=== PATIENT | female | born 1985 | race African-American/Black ===

== ENCOUNTER 2017-06-27 02:52 | Inpatient (IN) | payer MEDICAID, OTHER ==
[~2017-06-27] VITALS: Ht 160 cm; Wt 87.1 kg
[~2017-06-27 02:52] MED LIST: IBUP-2030 PO
[2017-06-27] MEDS ORDERED: LACTATED RINGERS 1,000 ML IV SCH (03:08)
[2017-06-27] MEDS ORDERED: NALOXONE HCL 0.4 MG/ML 1ML VIAL IM PRN (03:15)
[2017-06-27] MEDS ORDERED: LIDOCAINE HCL 1% 20ML VIAL (Pyxis) INJ INFIL SCH (03:15)
[2017-06-27] MEDS ORDERED: BUTORPHANOL TARTRATE 2 MG/ML VIAL IV PRN (03:15)
[2017-06-27] MEDS ORDERED: METHYLERGONOVINE MALEATE 0.2 MG/ML IM PRN (03:15)
[2017-06-27] MEDS ORDERED: MISOPROSTOL 100MCG TABLET VG SCH (03:15)
[2017-06-27] MEDS ORDERED: CARBOPROST TROMETHAMINE 250 MCG/ML AMPUL IM PRN (03:15)
[2017-06-27] MEDS ORDERED: PENICILLIN G POTASSIUM 5 MMU in DEXT 5% WATER 100 ML IV SCH (03:15)
[2017-06-27] MEDS: DEXT 5%/LR + PITOCIN 20UNITS/L 1,000 ML IV SCH ×3 (03:38→11:53)
[2017-06-27 03:48] LABS: HEMOGLOBIN. 8.5 g/dL (12.0-16.0); MEAN CORPUSCULAR VOLUME 66.1 fL (81.0-99.0); MEAN PLATELET VOLUME 8.5 fl (7.4-10.4); PLATELET 315 x1000/uL (130-400); RED BLOOD CELL COUNT 4.24 mill/uL (4.2-5.4); RED CELL DISTRIBUTION WIDTH 21.4 % (11.6-14.6)
[2017-06-27 03:51] LABS: CLARITY URINE TURBID (CLEAR); COLOR URINE YELLOW (YELLOW); GLUCOSE URINE TRACE (NEGATIVE); KETONES URINE NEGATIVE (NEGATIVE); LEUKOCYTE ESTERASE URINE TRACE (NEGATIVE); NITRITE URINE NEGATIVE (NEGATIVE); OCCULT BLOOD URINE TRACE (NEGATIVE); PROTEIN URINE 1+ (NEGATIVE); SPECIFIC GRAVITY URINE 1.019 (1.005-1.030)
[2017-06-27 03:56] LABS: PARTIAL THROMBOPLASTIN TIME 26.4 sec (23.4-31.0); PROTHROMBIN TIME 10.7 sec (9.4-11.6)
[2017-06-27 04:29] LABS: *AMPHETAMINES SCREEN URINE NEGATIVE (NEGATIVE); *BARBITURATES SCREEN URINE NEGATIVE (NEGATIVE); *BENZODIAZEPINES SCREEN URINE NEGATIVE (NEGATIVE); *COCAINE SCREEN URINE NEGATIVE (NEGATIVE); CANNABINOID URINE SCREEN NEGATIVE (NEGATIVE); METHADONE URINE SCREEN NEGATIVE (NEGATIVE); OPIATES URINE SCREEN NEGATIVE (NEGATIVE); PHENCYCLIDINE URINE SCREEN NEGATIVE (NEGATIVE)
[2017-06-27 04:50] LABS: NUCLEATED RED BLOOD CELLS 3 /100 WBC; PLATELET ESTIMATE NORMAL
[2017-06-27] MEDS ORDERED: LEVO112T2 PO (05:02)
[2017-06-27] MEDS ORDERED: PNV1TABL76 MT (05:02)
[2017-06-27] MEDS ORDERED: OXYTOCIN 10 UNITS/ML 1ML ONE (06:21)
[2017-06-27 06:55] LABS: HEPATITIS B SURFACE ANTIGEN NEGATIVE
[2017-06-27] MEDS ORDERED: BENZOCAINE/LANOLIN/ALOE VERA SPRAY TOP PRN (07:00)
[2017-06-27] MEDS ORDERED: ACETAMINOPHEN 500MG TABLET PO PRN (07:00)
[2017-06-27 07:59] LABS: RUBELLA IGG > 500.0 IU/mL (4.99-10)
[2017-06-27] MEDS ORDERED: PENICILLIN G POTASSIUM 2.5 MMU in DEXTROSE 5% WATER 50 ML IV SCH (08:00)
[2017-06-27] MEDS: OXYCODONE HCL/ACETAMINOPHEN 5/325MG TABLET PO PRN ×2 (08:34→18:30)
[2017-06-27 09:55] VITALS: BP 90/54
[2017-06-27 10:25] VITALS: BP 91/52
[2017-06-27] MEDS ORDERED: MISOPROSTOL 200MCG TABLET ONE (11:15)
[2017-06-27] MEDS: METHYLERGONOVINE MALEATE 0.2MG TABLET PO SCH ×2 (11:55→18:28)
[2017-06-27 15:20] VITALS: BP 115/65
[2017-06-27 20:00] VITALS: BP 110/66
[2017-06-27] MEDS ORDERED: DOCUSATE SODIUM 100MG CAPSULE PO SCH (21:00)
[2017-06-27 23:55] VITALS: BP 101/53
[2017-06-28 06:32] LABS: HEMATOCRIT. 25.4 % (36.0-48.0); HEMOGLOBIN. 7.7 g/dL (12.0-16.0); MEAN CORPUSCULAR HEMOGLOBIN 20.1 pg (28.0-32.0); MEAN CORPUSCULAR VOLUME 66.2 fL (81.0-99.0); MEAN PLATELET VOLUME 8.1 fl (7.4-10.4); PLATELET 331 x1000/uL (130-400); RED BLOOD CELL COUNT 3.83 mill/uL (4.2-5.4); RED CELL DISTRIBUTION WIDTH 21.3 % (11.6-14.6)
[2017-06-28 08:00] VITALS: BP 114/67
[2017-06-28] MEDS ORDERED: LEVOTHYROXINE SODIUM 100MCG TABLET PO SCH (09:00)
[2017-06-28] MEDS ORDERED: PRENATAL VIT/FE FUMARATE/FA TABLET PO SCH (09:00)
[2017-06-28] MEDS: FERROUS SULFATE 325MG TABLET PO SCH ×2 (09:52→11:49)
[2017-06-28 11:49] VITALS: BP 101/53
[2017-06-28] MEDS: OXYCODONE HCL/ACETAMINOPHEN 5/325MG TABLET PO PRN (11:49)
[2017-06-28 13:22] LABS: PLATELET ESTIMATE NORMAL
[2017-06-28] MEDS ORDERED: INFLUENZA VIRUS VACCINE 0.5ML SYR IM ONE (18:00)
== END 2017-06-28 19:16 | disposition home or self-care (01) | DRG 560 ==
LOC: L&D 02:52 → OBSVTOIN 02:52 → 7EST PP/OB 09:50
PROVIDERS: ADMIT Obstetrics & Gynecology Obstetrics; ATTEND Obstetrics & Gynecology Obstetrics
PROC: 10E0XZZ Delivery of Products of Conception, External Approach (ICD-10-PCS; principal; 2017-06-27 08:16)
DX: O99.284 Endocrine, nutritional and metabolic diseases complicating childbirth (principal); O34.13 Maternal care for benign tumor of corpus uteri, third trimester; E03.9 Hypothyroidism, unspecified; O66.0 Obstructed labor due to shoulder dystocia; Z3A.00 Weeks of gestation of pregnancy not specified; Z37.0 Single live birth
CPT/HCPCS: 36415; 80305; 81001; 85025; 85610; 85730; 86592; 86703; 86762; 86850; 86900; 86920; 87340; 90686; G0378; J0595; J2540; J2590; J3490; J7060; J7120; A4315

== ENCOUNTER 2018-08-23 18:35 | Inpatient (IN) | payer OTHER ==
[~2018-08-23] VITALS: Ht 160 cm; Wt 86.2 kg
[2018-08-23] MEDS ORDERED: FERR325T23 MT (18:52)
[2018-08-23] MEDS ORDERED: PREN1TAB78 PO (18:52)
[2018-08-23] MEDS ORDERED: [UNRECOGNIZED DRUG - CODE] MT (18:53)
[2018-08-23] MEDS ORDERED: DEXT 5%/LR + PITOCIN 20UNITS/L 1,000 ML IV SCH (20:11)
[2018-08-23] MEDS ORDERED: LIDOCAINE HCL 1% 20ML VIAL (Pyxis) INJ INFIL NR (20:15)
[2018-08-23] MEDS ORDERED: METHYLERGONOVINE MALEATE 0.2 MG/ML IM PRN (20:15)
[2018-08-23 20:45] LABS: CLARITY URINE TURBID (CLEAR); COLOR URINE YELLOW (YELLOW); KETONES URINE TRACE (NEGATIVE); LEUKOCYTE ESTERASE URINE NEGATIVE (NEGATIVE); NITRITE URINE NEGATIVE (NEGATIVE); OCCULT BLOOD URINE 3+ (NEGATIVE); PH URINE 7.5 (4.5-8.0); PROTEIN URINE 1+ (NEGATIVE); SPECIFIC GRAVITY URINE 1.018 (1.005-1.030)
[2018-08-23 20:52] LABS: HEMATOCRIT. 31.3 % (36.0-48.0); HEMOGLOBIN. 9.6 g/dL (12.0-16.0); MEAN CORPUSCULAR HEMOGLOBIN 21.2 pg (28.0-32.0); MEAN CORPUSCULAR VOLUME 69.5 fL (81.0-99.0); MEAN PLATELET VOLUME 8.2 fl (7.4-10.4); PLATELET 286 x1000/uL (130-400); RED CELL DISTRIBUTION WIDTH 21.2 % (11.6-14.6)
[2018-08-23 20:57] LABS: PARTIAL THROMBOPLASTIN TIME 29.6 sec (23.4-31.0); PROTHROMBIN TIME 10.3 sec (9.1-11.1)
[2018-08-23 21:18] LABS: *AMPHETAMINES SCREEN URINE NEGATIVE (NEGATIVE); *BARBITURATES SCREEN URINE NEGATIVE (NEGATIVE); *BENZODIAZEPINES SCREEN URINE NEGATIVE (NEGATIVE); *COCAINE SCREEN URINE NEGATIVE (NEGATIVE)
[2018-08-23 21:19] LABS: CANNABINOID URINE SCREEN NEGATIVE (NEGATIVE); METHADONE URINE SCREEN NEGATIVE (NEGATIVE); OPIATES URINE SCREEN NEGATIVE (NEGATIVE); PHENCYCLIDINE URINE SCREEN NEGATIVE (NEGATIVE)
[2018-08-23] MEDS ORDERED: INFLUENZA VIRUS VACCINE(AFLURIA) 0.5ML SYR IM ONE (21:30)
[2018-08-23] MEDS ORDERED: PNEUMOCOCCAL 23-VAL P-SAC VAC 0.5 ML IM ONE (21:30)
[2018-08-23] MEDS: LACTATED RINGERS 1,000 ML IV SCH ×2 (21:33→22:25)
[2018-08-23 21:45] LABS: NUCLEATED RED BLOOD CELLS 2 /100 WBC; PLATELET ESTIMATE NORMAL
[2018-08-23] MEDS ORDERED: PENICILLIN G POTASSIUM 5 MMU in DEXT 5% WATER 100 ML IV SCH (22:00)
[2018-08-23 22:11] LABS: HEPATITIS B SURFACE ANTIGEN NEGATIVE
[2018-08-23] MEDS ORDERED: CITRIC ACID/SODIUM CITRATE SOLN 30ML UDC PO SCH (22:15)
[2018-08-23] MEDS ORDERED: EPHEDRINE SULFATE 50MG/ML VIAL ONE (22:27)
[2018-08-23] MEDS ORDERED: GLYCOPYRROLATE 0.2 MG/ML 2ML VIAL ONE (22:27)
[2018-08-23] MEDS ORDERED: SODIUM CHLORIDE 0.9% 10ML VIAL ONE ×2 (22:27→23:33)
[2018-08-23] MEDS ORDERED: OXYTOCIN 10 UNITS/ML 1ML ONE ×2 (22:28→23:47)
[2018-08-23] MEDS ORDERED: MORPHINE SULFATE/PF 1MG/ML 10ML AMP ONE (22:30)
[2018-08-23] MEDS ORDERED: CEFAZOLIN SODIUM 1000MG/VIAL ONE (23:33)
[2018-08-23] MEDS ORDERED: METOCLOPRAMIDE HCL 10MG/2ML VIAL ONE (23:41)
[2018-08-23] MEDS ORDERED: ONDANSETRON HCL 4MG/2ML INJ ONE (23:41)
[2018-08-24] VITALS (7 sets, daily range): BP systolic 98–107; BP diastolic 39–59
[2018-08-24] MEDS ORDERED: DEXT 5%/LR + PITOCIN 20UNITS/L 1,000 ML IV SCH (00:18)
[2018-08-24] MEDS ORDERED: PENICILLIN G POTASSIUM 2.5 MMU in DEXTROSE 5% WATER 50 ML IV SCH (02:00)
[2018-08-24] MEDS ORDERED: KETOROLAC 30MG/ML VIAL IV PRN (04:15)
[2018-08-24 07:32] LABS: HEMATOCRIT. 29.6 % (36.0-48.0); MEAN CORPUSCULAR HEMOGLOBIN 21.5 pg (28.0-32.0); MEAN CORPUSCULAR VOLUME 70.6 fL (81.0-99.0); MEAN PLATELET VOLUME 8.5 fl (7.4-10.4); PLATELET 229 x1000/uL (130-400); RED CELL DISTRIBUTION WIDTH 20.9 % (11.6-14.6)
[2018-08-24 12:51] LABS: PLATELET ESTIMATE NORMAL
[2018-08-24] MEDS: ACETAMINOPHEN WITH CODEINE 300/30MG TABLET PO PRN (17:53)
[2018-08-25] VITALS: BP 105/60
[2018-08-25] MEDS: ACETAMINOPHEN WITH CODEINE 300/30MG TABLET PO PRN ×3 (01:25→16:54)
[2018-08-25 06:26] VITALS: BP 95/53
[2018-08-25 08:30] VITALS: BP 111/64
[2018-08-25] MEDS ORDERED: DIPHENHYDRAMINE HCL/ZINC ACET 28 GM CREAM TOP PRN (09:30)
[2018-08-25] MEDS: BISACODYL 5MG TABLET PO NR ×2 (10:04→16:56)
[2018-08-25] MEDS ORDERED: BISACODYL 5MG TABLET PO ONE (10:22)
[2018-08-25] MEDS ORDERED: BISACODYL 10MG SUPP PR PRN (16:45)
[2018-08-25 17:07] VITALS: BP 106/64
[2018-08-25 20:00] VITALS: BP 102/58
[2018-08-25] MEDS: HYDROCODONE/ACETAMINOPHEN 5/325MG TABLET PO PRN (20:59)
[2018-08-26] VITALS: BP 103/56
[2018-08-26] MEDS: HYDROCODONE/ACETAMINOPHEN 5/325MG TABLET PO PRN (03:06)
[2018-08-26 04:00] VITALS: BP 108/57
[2018-08-26 08:00] VITALS: BP 102/56
[2018-08-26] MEDS: ACETAMINOPHEN WITH CODEINE 300/30MG TABLET PO PRN (14:16)
[2018-08-26 16:00] VITALS: BP 111/63
[2018-08-26 20:00] VITALS: BP 110/66
[2018-08-27] VITALS: BP 108/60
[2018-08-27 04:00] VITALS: BP 117/71
[2018-08-27] MEDS: HYDROCODONE/ACETAMINOPHEN 5/325MG TABLET PO PRN (05:06)
[2018-08-27 09:11] VITALS: BP 107/58
== END 2018-08-27 12:30 | disposition home or self-care (01) | DRG 788 ==
LOC: L&D 18:35 → INTOOBSV 18:35 → OBSVTOIN 18:35 → 8 EST LDRP 18:47 → 8EST 08-24 04:00
PROVIDERS: ADMIT Obstetrics & Gynecology Obstetrics; ATTEND Obstetrics & Gynecology Obstetrics
PROC: 10D00Z1 Extraction of Products of Conception, Low, Open Approach (ICD-10-PCS; principal; 2018-08-25)
DX: O77.0 Labor and delivery complicated by meconium in amniotic fluid (principal); O32.6XX0 Maternal care for compound presentation, not applicable or unspecified; O32.2XX0 Maternal care for transverse and oblique lie, not applicable or unspecified; Z3A.38 38 weeks gestation of pregnancy; Z37.0 Single live birth
CPT/HCPCS: 36415; 76805; 76818; 80305; 86592; 86703; 86762; 86850; 86900; 86920; 87340; 88307; 99281; G0378; J0690; J2274; J2405; J2540; J2590; J2765; J3490; J7060

== ENCOUNTER → 2020-05-30 | Outpatient (CLI) | payer BC ==
[2020-05-30 12:41] LABS: BASOPHILS % 0.9 % (0.0-2.0); EOSINOPHILS % 1.3 % (0.0-5.0); HEMATOCRIT. 38.9 % (36.0-48.0); HEMOGLOBIN. 12.9 g/dL (12.0-16.0); LYMPHOCYTES % 44.6 % (20.0-50.0); MEAN CORPUSCULAR HEMOGLOBIN 28.2 pg (28.0-32.0); MEAN CORPUSCULAR VOLUME 85.3 fL (81.0-99.0); MEAN PLATELET VOLUME 9.1 fl (7.4-10.4); NEUTROPHILS % 47.2 % (40.0-76.0); PLATELET 197 x1000/uL (130-400); RED BLOOD CELL COUNT 4.57 mill/uL (4.2-5.4)
[2020-05-30 12:50] LABS: CHLORIDE 109 mEq/L (98-107)
[2020-05-30 12:56] LABS: LDL CHOLESTEROL 138 mg/dL (5-100)
[2020-05-30 12:57] LABS: HDL CHOLESTEROL 49 mg/dL (40-59)
[2020-05-30 12:59] LABS: T4 FREE 0.97 ng/dL (0.76-1.46)
[2020-05-30 13:00] LABS: TOTAL IRON BINDING CAPACITY 389 ug/dL (250-450)
== END | disposition home or self-care (01) ==
LOC: LAB 11:54
PROVIDERS: ATTEND Internal Medicine
DX: D64.9 Anemia, unspecified (principal); E03.9 Hypothyroidism, unspecified; E78.5 Hyperlipidemia, unspecified
CPT/HCPCS: 36415; 80053; 80061; 83036; 83540; 83550; 84439; 84443; 85025

== ENCOUNTER → 2021-03-03 | Outpatient (CLI) | payer BC | END | disposition home or self-care (01) | LOC: US 10:17 | PROVIDERS: ATTEND Obstetrics & Gynecology Obstetrics | DX: O09.891 Supervision of other high risk pregnancies, first trimester (principal); D25.9 Leiomyoma of uterus, unspecified; Z3A.10 10 weeks gestation of pregnancy | CPT/HCPCS: 76801 ==

== ENCOUNTER → 2021-03-27 | Outpatient (CLI) | payer BC ==
[2021-03-27 14:21] LABS: HEPATITIS B SURFACE ANTIGEN NEGATIVE
[2021-03-27 14:51] LABS: HEPATITIS A AB IGM NEGATIVE (NEGATIVE)
[2021-03-30 09:09] LABS: HGB A2 2.4 % (1.8-3.2)
[2021-04-03 12:20] LABS: HIV SCREEN 4G Non Reactive (Non Reactive); RUBEOLA AB IGG > 300.00 AU/mL (Immune >16.4); VITAMIN D 25-OH 41.3 ng/mL (30.0-100.0)
== END | disposition home or self-care (01) ==
LOC: LAB 11:02
PROVIDERS: ATTEND Obstetrics & Gynecology Obstetrics
DX: O09.91 Supervision of high risk pregnancy, unspecified, first trimester (principal); Z13.1 Encounter for screening for diabetes mellitus; Z11.4 Encounter for screening for human immunodeficiency virus [HIV]; E55.9 Vitamin D deficiency, unspecified
CPT/HCPCS: 36415; 82306; 82947; 83021; 83036; 84439; 84443; 85660; 86592; 86705; 86709; 86762; 86765; 86803; 86900; 87340; 87389

== ENCOUNTER → 2021-06-08 | Outpatient (CLI) | payer BC ==
[2021-06-08 09:39] LABS: HEMATOCRIT 39.9 % (36.0-48.0); HEMOGLOBIN 13.6 g/dL (12.0-16.0)
== END | disposition home or self-care (01) ==
LOC: LAB 08:54
PROVIDERS: ATTEND Obstetrics & Gynecology Obstetrics
DX: Z13.1 Encounter for screening for diabetes mellitus (principal)
CPT/HCPCS: 36415; 82947; 82950; 84436; 84443; 84480; 85014; 85018

== ENCOUNTER 2021-07-27 11:20 | Observation (INO) | payer BC, MEDICAID ==
[~2021-07-27] VITALS: Ht 160 cm; Wt 89.8 kg
[2021-07-27] MEDS ORDERED: LACTATED RINGERS 1,000 ML IV SCH (13:15)
[2021-07-27 13:27] LABS: CLARITY URINE CLEAR (CLEAR); COLOR URINE YELLOW (YELLOW); KETONES URINE TRACE (NEGATIVE); LEUKOCYTE ESTERASE URINE NEGATIVE (NEGATIVE); NITRITE URINE NEGATIVE (NEGATIVE); OCCULT BLOOD URINE NEGATIVE (NEGATIVE); PROTEIN URINE TRACE (NEGATIVE); SPECIFIC GRAVITY URINE 1.029 (1.005-1.030)
[2021-07-27] MEDS ORDERED: TERBUTALINE SULFATE 1MG/ML VIAL SUBCUT NR (15:00)
[2021-07-27] MEDS ORDERED: PNV1TABL76 MT (15:50)
[2021-07-27] MEDS ORDERED: CEFAZOLIN 2,000 MG in DEXT 5% WATER 100 ML IV NR (16:00)
== END 2021-07-27 16:00 | disposition home or self-care (01) ==
LOC: 8 EST LDRP 11:20
PROVIDERS: ADMIT Obstetrics & Gynecology Obstetrics; ATTEND Obstetrics & Gynecology Obstetrics
DX: O99.891 Other specified diseases and conditions complicating pregnancy (principal); M54.59 Other low back pain; O26.893 Other specified pregnancy related conditions, third trimester; R10.30 Lower abdominal pain, unspecified; O62.9 Abnormality of forces of labor, unspecified; O09.523 Supervision of elderly multigravida, third trimester; Z3A.30 30 weeks gestation of pregnancy
CPT/HCPCS: 59025; 81003; 96361; 96365; G0378; J0690; J7060; 96360; 99281

== ENCOUNTER 2021-09-22 09:08 | Inpatient (IN) | payer BC, MEDICAID ==
[~2021-09-22] VITALS: Ht 160 cm; Wt 94.3 kg
[~2021-09-22 09:08] MED LIST changes: -IBUP-2030 PO; +PNV1TABL76 MT
[2021-09-22] MEDS ORDERED: LEVO100T PO (09:32)
[2021-09-22] MEDS ORDERED: METHYLERGONOVINE MALEATE 0.2 MG/ML IM PRN (09:45)
[2021-09-22] MEDS ORDERED: CARBOPROST TROMETHAMINE 250 MCG/ML AMPUL IM PRN (09:45)
[2021-09-22] MEDS ORDERED: NALOXONE HCL 0.4 MG/ML 1ML VIAL IM PRN (09:45)
[2021-09-22] MEDS ORDERED: MISOPROSTOL 100MCG TABLET VG PRN (09:45)
[2021-09-22] MEDS ORDERED: CITRIC ACID/SODIUM CITRATE SOLN 30ML UDC PO NR (09:45)
[2021-09-22] MEDS ORDERED: DEXT 5%/LR + PITOCIN 20UNITS/L 1,000 ML IV SCH (09:45)
[2021-09-22] MEDS ORDERED: TRANEXAMIC ACID 1,000 MG/10 ML IV PRN (09:45)
[2021-09-22] MEDS ORDERED: PHENYLEPHRINE HCL 10 MG/ML 1ML (IV VIAL) IV ONE (10:08)
[2021-09-22] MEDS ORDERED: OXYTOCIN 10 UNITS/ML 1ML ONE ×2 (10:08→13:06)
[2021-09-22] MEDS ORDERED: EPHEDRINE SULFATE 50MG/ML VIAL ONE (10:08)
[2021-09-22] MEDS ORDERED: CEFAZOLIN SODIUM 1000MG/VIAL ONE (10:08)
[2021-09-22] MEDS ORDERED: FENTANYL CITRATE/PF 50MCG/ML 2ML VIAL ONE (10:08)
[2021-09-22] MEDS ORDERED: MORPHINE SULFATE/PF 1MG/ML 10ML AMP ONE (10:08)
[2021-09-22] MEDS ORDERED: ONDANSETRON HCL 4MG/2ML INJ ONE (10:08)
[2021-09-22] MEDS ORDERED: DIPHENHYDRAMINE 50MG/ML VIAL ONE (10:08)
[2021-09-22] MEDS ORDERED: SODIUM CHLORIDE 0.9% 10ML VIAL ONE (10:32)
[2021-09-22] MEDS: LACTATED RINGERS 1,000 ML IV SCH ×2 (10:39→10:58)
[2021-09-22 11:05] LABS: BASOPHILS % 0.3 % (0.0-2.0); EOSINOPHILS % 0.3 % (0.0-5.0); HEMATOCRIT. 39.9 % (36.0-48.0); HEMOGLOBIN. 13.3 g/dL (12.0-16.0); LYMPHOCYTES % 17.6 % (20.0-50.0); MEAN CORPUSCULAR HEMOGLOBIN 28.9 pg (28.0-32.0); MEAN CORPUSCULAR VOLUME 86.9 fL (81.0-99.0); MEAN PLATELET VOLUME 9.2 fl (7.4-10.4); MONOCYTES % 7.7 % (2.0-8.0); NEUTROPHILS % 74.1 % (40.0-76.0); PLATELET 173 x1000/uL (130-400); RED BLOOD CELL COUNT 4.59 mill/uL (4.2-5.4); RED CELL DISTRIBUTION WIDTH 15.7 % (11.6-14.6)
[2021-09-22 11:08] LABS: CLARITY URINE CLEAR (CLEAR); COLOR URINE YELLOW (YELLOW); KETONES URINE NEGATIVE (NEGATIVE); LEUKOCYTE ESTERASE URINE NEGATIVE (NEGATIVE); NITRITE URINE NEGATIVE (NEGATIVE); OCCULT BLOOD URINE NEGATIVE (NEGATIVE); PH URINE 6.5 (4.5-8.0); PROTEIN URINE 1+ (NEGATIVE)
[2021-09-22 11:30] LABS: PARTIAL THROMBOPLASTIN TIME 29.7 sec (23.4-31.0); PROTHROMBIN TIME 10.3 sec (9.6-11.0)
[2021-09-22 11:38] LABS: *AMPHETAMINES SCREEN URINE NEGATIVE (NEGATIVE); *BARBITURATES SCREEN URINE NEGATIVE (NEGATIVE); *BENZODIAZEPINES SCREEN URINE NEGATIVE (NEGATIVE); *COCAINE SCREEN URINE NEGATIVE (NEGATIVE); CANNABINOID URINE SCREEN NEGATIVE (NEGATIVE)
[2021-09-22 11:39] LABS: METHADONE URINE SCREEN NEGATIVE (NEGATIVE); OPIATES URINE SCREEN NEGATIVE (NEGATIVE); PHENCYCLIDINE URINE SCREEN NEGATIVE (NEGATIVE)
[2021-09-22] MEDS ORDERED: KETOROLAC 60MG/2ML VIAL IM ONE (13:48)
[2021-09-22] MEDS ORDERED: DIPHENHYDRAMINE 50MG/ML VIAL IV PRN (14:15)
[2021-09-22] MEDS ORDERED: NALOXONE HCL 0.4 MG/ML 1ML VIAL IV PRN (14:15)
[2021-09-22] MEDS ORDERED: HEMORRHOIDAL SUPP PR PRN (14:15)
[2021-09-22 14:33] LABS: HEPATITIS B SURFACE ANTIGEN NEGATIVE
[2021-09-22] MEDS ORDERED: METHYLERGONOVINE MALEATE 0.2 MG/ML ONE (14:55)
[2021-09-22] MEDS ORDERED: KETOROLAC 30MG/ML VIAL IV SCH (15:00)
[2021-09-22 16:00] VITALS: BP 98/50
[2021-09-22 16:30] VITALS: BP 94/51
[2021-09-22] MEDS ORDERED: TETANUS, DIPHTHERIA, PERTUSSIS VAC/PF 0.5ML (>10YR OLD) IM ONE (17:00)
[2021-09-22] MEDS ORDERED: INFLUENZA VACCINE 05/PF 0.5 ML SYRINGE IM ONE (17:00)
[2021-09-22 20:00] VITALS: BP 113/67
[2021-09-22 23:55] VITALS: BP 101/56
[2021-09-23 04:00] VITALS: BP 105/56
[2021-09-23] MEDS ORDERED: KETOROLAC 30MG/ML VIAL IV SCH (05:45)
[2021-09-23] MEDS: LEVOTHYROXINE SODIUM 100MCG TABLET PO SCH (06:32)
[2021-09-23 07:17] LABS: BASOPHILS % 0.4 % (0.0-2.0); EOSINOPHILS % 0.2 % (0.0-5.0); HEMATOCRIT. 33.1 % (36.0-48.0); HEMOGLOBIN. 11.1 g/dL (12.0-16.0); MEAN CORPUSCULAR HEMOGLOBIN 29.4 pg (28.0-32.0); MEAN CORPUSCULAR VOLUME 87.5 fL (81.0-99.0); MEAN PLATELET VOLUME 9.1 fl (7.4-10.4); MONOCYTES % 8.5 % (2.0-8.0); NEUTROPHILS % 80.9 % (40.0-76.0); PLATELET 146 x1000/uL (130-400); RED BLOOD CELL COUNT 3.78 mill/uL (4.2-5.4); RED CELL DISTRIBUTION WIDTH 15.5 % (11.6-14.6)
[2021-09-23 07:30] VITALS: BP 92/54
[2021-09-23 12:22] VITALS: BP 103/58
[2021-09-23] MEDS ORDERED: ACETAMINOPHEN WITH CODEINE 300/30MG TABLET PO NR (14:45)
[2021-09-23] MEDS ORDERED: TETANUS, DIPHTHERIA, PERTUSSIS VAC/PF 0.5ML (>10YR OLD) IM ONE (15:00)
[2021-09-23] MEDS ORDERED: INFLUENZA VACCINE 05/PF 0.5 ML SYRINGE IM ONE (15:00)
[2021-09-23] MEDS ORDERED: NALOXONE HCL 0.4MG/ML VIAL IV PRN (15:15)
[2021-09-23 16:30] VITALS: BP 102/49
[2021-09-23 19:21] VITALS: BP 120/67
[2021-09-23] MEDS: HYDROCODONE/ACETAMINOPHEN 5/325MG TABLET PO PRN (19:21)
[2021-09-23] MEDS: DOCUSATE SODIUM 100MG CAPSULE PO SCH (21:01)
[2021-09-24] MEDS: HYDROCODONE/ACETAMINOPHEN 5/325MG TABLET PO PRN ×4 (03:07→19:07)
[2021-09-24 04:00] VITALS: BP 113/66
[2021-09-24] MEDS: LEVOTHYROXINE SODIUM 100MCG TABLET PO SCH (07:08)
[2021-09-24 08:08] VITALS: BP 117/67
[2021-09-24 15:26] VITALS: BP 107/64
[2021-09-24 20:00] VITALS: BP 108/68
[2021-09-24] MEDS: DOCUSATE SODIUM 100MG CAPSULE PO SCH (21:08)
[2021-09-25] MEDS: HYDROCODONE/ACETAMINOPHEN 5/325MG TABLET PO PRN ×3 (00:16→11:05)
[2021-09-25 04:00] VITALS: BP 116/68
[2021-09-25] MEDS: LEVOTHYROXINE SODIUM 100MCG TABLET PO SCH (06:53)
[2021-09-25 07:45] VITALS: BP 105/62
== END 2021-09-25 14:15 | disposition home or self-care (01) | DRG 788 ==
LOC: 8 EST LDRP 09:08 → 8EST 16:02
PROVIDERS: ADMIT Obstetrics & Gynecology Obstetrics; ATTEND Obstetrics & Gynecology Obstetrics
PROC: 10D00Z1 Extraction of Products of Conception, Low, Open Approach (ICD-10-PCS; principal; 2021-09-22)
DX: O34.211 Maternal care for low transverse scar from previous cesarean delivery (principal); D25.9 Leiomyoma of uterus, unspecified; O34.13 Maternal care for benign tumor of corpus uteri, third trimester; Z20.822 Contact with and (suspected) exposure to COVID-19; O71.89 Other specified obstetric trauma; K43.9 Ventral hernia without obstruction or gangrene; O99.62 Diseases of the digestive system complicating childbirth; Z37.0 Single live birth; Z3A.39 39 weeks gestation of pregnancy
CPT/HCPCS: 36415; 80305; 81003; 85025; 86592; 86703; 86762; 86850; 86900; 86920; 87340; 87426; 88307; 90686; 90715; J0690; J1200; J1885; J2210; J2274; J2370; J2405; J2590; J3010; J3490; J7120

== ENCOUNTER → 2021-11-14 | Outpatient (CLI) | payer BC, MEDICAID ==
[~2021-11-14] MED LIST changes: +LEVO100T PO
== END | disposition home or self-care (01) ==
LOC: US 09:02
PROVIDERS: ATTEND Obstetrics & Gynecology Obstetrics
DX: D26.1 Other benign neoplasm of corpus uteri (principal); N84.0 Polyp of corpus uteri; R93.89 Abnormal findings on diagnostic imaging of other specified body structures
CPT/HCPCS: 76830; 76856

== ENCOUNTER → 2021-12-27 | Day surgery (SDC) | payer BC, MEDICAID ==
[~2021-12-27] VITALS: Ht 160 cm; Wt 82.6 kg
[~2021-12-27] MED LIST changes: +CEFAZOLIN SODIUM 1000MG/VIAL ONE; +DEXAMETHASONE 4MG/ML 1ML VIAL ONE; +GLYCOPYRROLATE 0.2 MG/ML 2ML VIAL ONE; +HYDROMORPHONE HCL/PF 2MG/ML CPJ IV PRN; +HYDROMORPHONE HCL/PF 2MG/ML CPJ ONE; +KETOROLAC 30MG/ML VIAL ONE; +LABETALOL 5MG/ML SYR 20 MG/4 ML SYRINGE IV PRN; +LACTATED RINGERS 1,000 ML IV SCH; +MEPERIDINE HCL/PF 25MG/ML CPJ IV PRN; +ONDANSETRON HCL 4MG/2ML INJ IV PRN
[2021-12-27 07:16] LABS: CLARITY URINE CLEAR (CLEAR); COLOR URINE YELLOW (YELLOW); KETONES URINE NEGATIVE (NEGATIVE); LEUKOCYTE ESTERASE URINE NEGATIVE (NEGATIVE); NITRITE URINE NEGATIVE (NEGATIVE); OCCULT BLOOD URINE NEGATIVE (NEGATIVE); PH URINE 5.5 (4.5-8.0); PROTEIN URINE TRACE (NEGATIVE); SPECIFIC GRAVITY URINE 1.018 (1.005-1.030); UROBILINOGEN URINE 0.2 E.U./dL (0.2-1.0)
[2021-12-27 07:30] LABS: UCG SCREEN NEGATIVE
[2021-12-27 07:31] LABS: BASOPHILS % 0.9 % (0.0-2.0); EOSINOPHILS % 1.2 % (0.0-5.0); HEMATOCRIT. 40.6 % (36.0-48.0); HEMOGLOBIN. 13.6 g/dL (12.0-16.0); LYMPHOCYTES % 40.3 % (20.0-50.0); MEAN CORPUSCULAR HEMOGLOBIN 28.3 pg (28.0-32.0); MEAN CORPUSCULAR VOLUME 84.2 fL (81.0-99.0); MEAN PLATELET VOLUME 8.2 fl (7.4-10.4); MONOCYTES % 7.8 % (2.0-8.0); NEUTROPHILS % 49.8 % (40.0-76.0); PLATELET 211 x1000/uL (130-400); RED BLOOD CELL COUNT 4.83 mill/uL (4.2-5.4); RED CELL DISTRIBUTION WIDTH 18.3 % (11.6-14.6)
[2021-12-27 07:40] LABS: CHLORIDE 108 mEq/L (98-107)
[2021-12-27 07:41] LABS: INR 1.1; PARTIAL THROMBOPLASTIN TIME 30.8 sec (23.4-31.0); PROTHROMBIN TIME 11.4 sec (9.6-11.0)
== END | disposition home or self-care (01) ==
LOC: OR 06:47
PROVIDERS: ATTEND Obstetrics & Gynecology Obstetrics
DX: N84.0 Polyp of corpus uteri (principal); N93.8 Other specified abnormal uterine and vaginal bleeding; E03.9 Hypothyroidism, unspecified; Z79.899 Other long term (current) drug therapy; Z98.890 Other specified postprocedural states; Z82.49 Family history of ischemic heart disease and other diseases of the circulatory system; Z79.01 Long term (current) use of anticoagulants; Z20.822 Contact with and (suspected) exposure to COVID-19
CPT/HCPCS: 36415; 58558; 80048; 81003; 81025; 85025; 85610; 85730; 87426; 88305; C9803; J0690; J1100; J1170; J1885; J3490